=== PATIENT | female | born 1945 | race African-American/Black ===

== ENCOUNTER 2016-10-12 14:29 | Emergency (ER) | payer OTHER ==
[~2016-10-12] VITALS: Ht 157.5 cm; Wt 127.0 kg
[~2016-10-12 14:29] MED LIST: ALLO300T2 PO; COR12 PO; FLONAS NS; GABA300C PO; LOSA50TA3 PO; NAPR375T5 PO; NORT10CA PO; proair hfa INH
[2016-10-12] MEDS ORDERED: ACETAMINOPHEN 325MG TABLET PO ONE (15:45)
[2016-10-12 15:59] LABS: BASOPHILS % 0.7 % (0.0-2.0); EOSINOPHILS % 1.1 % (0.0-5.0); HEMATOCRIT. 36.7 % (36.0-48.0); HEMOGLOBIN. 11.9 g/dL (12.0-16.0); LYMPHOCYTES % 12.5 % (20.0-50.0); MEAN CORPUSCULAR HEMOGLOBIN 27.8 pg (28.0-32.0); MEAN CORPUSCULAR HGB CONC 32.3 g/dL (31.0-37.0); MEAN CORPUSCULAR VOLUME 85.9 fL (81.0-99.0); MEAN PLATELET VOLUME 9.3 fl (7.4-10.4); MONOCYTES % 6.5 % (2.0-8.0); NEUTROPHILS % 79.2 % (40.0-76.0); PLATELET 230 x1000/uL (130-400); RED BLOOD CELL COUNT 4.28 mill/uL (4.2-5.4); RED CELL DISTRIBUTION WIDTH 15.1 % (11.6-14.6); WHITE BLOOD COUNT 9.3 x1000/uL (4.5-11.0)
[2016-10-12 16:21] LABS: ALANINE AMINOTRANSFERASE 13 IU/L (13-61); ALBUMIN 3.3 g/dL (3.4-5.0); ANION GAP 15; CALCIUM 9.5 mg/dL (8.5-10.1); CARBON DIOXIDE 25 mEq/L (21-32); CHLORIDE 100 mEq/L (98-107); INDEX HEMOLYSI 1 (1-3); INDEX ICTERIC 1 (1-4); INDEX LIPEMIC 1 (1-3); UREA NITROGEN BLOOD 20 mg/dL (7-21); eGFR 59 mL/min (>60)
[2016-10-12] MEDS ORDERED: IBUPROFEN 600MG TABLET PO ONE (19:00)
[2016-10-12] MEDS ORDERED: HYDROCODONE/ACETAMINOPHEN 5/325MG TABLET PO ONE (19:15)
[2016-10-12 19:52] VITALS: BP 148/72
== END 2016-10-12 20:30 | disposition home or self-care (01) ==
LOC: ER 14:38
DX: M25.521 Pain in right elbow (principal); M25.522 Pain in left elbow; Z79.899 Other long term (current) drug therapy; E11.9 Type 2 diabetes mellitus without complications; Z91.041 Radiographic dye allergy status; E86.0 Dehydration; E87.1 Hypo-osmolality and hyponatremia; I12.9 Hypertensive chronic kidney disease with stage 1 through stage 4 chronic kidney disease, or unspecified chronic kidney disease; N18.9 Chronic kidney disease, unspecified; W18.39XA Other fall on same level, initial encounter; Y93.89 Activity, other specified; Y99.9 Unspecified external cause status; Y92.89 Other specified places as the place of occurrence of the external cause
CPT/HCPCS: 36415; 70450; 71010; 73060; 73090; 73130; 80053; 83036; 85025; 99285